=== PATIENT | male | born 1965 | race Two or more races ===

== ENCOUNTER 2025-01-03 09:37 | Outpatient (CLI) | payer OTHER | END 2025-01-03 09:38 | disposition home or self-care (01) | LOC: EDBD 09:37 → NUCLEAR 09:37 | DX: I70.203 Unspecified atherosclerosis of native arteries of extremities, bilateral legs (principal) ==

== ENCOUNTER 2025-01-04 08:42 | Outpatient (CLI) | payer OTHER | END 2025-01-04 08:43 | disposition home or self-care (01) | LOC: NUCLEAR 08:42 | DX: I70.203 Unspecified atherosclerosis of native arteries of extremities, bilateral legs (principal); I75.023 Atheroembolism of bilateral lower extremities; I87.2 Venous insufficiency (chronic) (peripheral) ==